=== PATIENT | male | born 2000 | race Caucasian/White ===

== ENCOUNTER 2025-04-10 13:36 | Inpatient (IN) | payer OTHER ==
[~2025-04-10] VITALS: Ht 182.9 cm; Wt 91.2 kg
[2025-04-10 14:12] LABS: PLATELET COUNT, AUTOMATED 241 10^3/uL (150-450)
[2025-04-10 14:35] LABS: AMPHETAMINES LEVEL URINE NEGATIVE (NEGATIVE); BARBITURATES URINE NEGATIVE (NEGATIVE); BENZODIAZEPINES URINE NEGATIVE (NEGATIVE); COCAINE METABOLITE URINE NEGATIVE (NEGATIVE); METHADONE URINE NEGATIVE (NEGATIVE)
[2025-04-10 14:36] LABS: CANNABINOIDS URINE NEGATIVE (NEGATIVE); OPIATES URINE NEGATIVE (NEGATIVE); PHENCYCLIDINE URINE NEGATIVE (NEGATIVE)
[2025-04-10 14:38] LABS: ETHYL ALCOHOL (ETHANOL) < 0.003 % (0.000-0.010)
[2025-04-10 14:40] LABS: ALT/SGPT 29 U/L (7.0-40); AST/SGOT 25 U/L (<34); CALCIUM LEVEL 9.3 MG/DL (8.5-10.1); CARBON DIOXIDE LEVEL 27 MMOL/L (20-31); CHLORIDE LEVEL 102 MMOL/L (98-107); CREATININE FOR GFR 1.00 MG/DL (0.70-1.30); GLOMERULAR FILTRATION RATE > 90.0 (>60); POTASSIUM SERUM 4.0 MMOL/L (3.5-5.1); SALICYLATE LEVEL < 3.0 MG/DL (<30); SODIUM LEVEL 141 MMOL/L (136-145)
[2025-04-10] MEDS ORDERED: MOM 30 ML SUSPENSION UDC PO PRN (15:35)
[2025-04-10] MEDS ORDERED: MAALOX 30 ML SUSP *UDC PO PRN (15:35)
[2025-04-10] MEDS ORDERED: ACETAMINOPHEN 325 MG TAB PO PRN (15:35)
[2025-04-10] MEDS ORDERED: HOME MED LIST COMPLETE! XX SCH (16:05)
[2025-04-10 17:01] VITALS: BP 117/58; TEMP 97.5; O2SAT 98
[2025-04-10] MEDS: IBUPROFEN 400 MG TAB PO PRN (17:19)
[2025-04-11 06:19] VITALS: BP 124/84; TEMP 97.8; O2SAT 98
[2025-04-11 15:18] VITALS: BP 110/54; TEMP 97.9; O2SAT 97
[2025-04-11] MEDS: traZODone 50 MG TAB PO PRN (22:15)
[2025-04-12 06:31] VITALS: BP 118/59; TEMP 97.8; O2SAT 99
[2025-04-12 15:24] VITALS: BP 109/53; TEMP 98; O2SAT 98
[2025-04-13 06:43] VITALS: BP 116/70; TEMP 97.5; O2SAT 97
== END 2025-04-13 11:27 | DRG 885 ==
LOC: EDBD 13:36 → M ED 13:36 → M ED INP 15:34 → M PSY 16:57
PROVIDERS: ADMIT General Practice; ATTEND General Practice
DX: F39 Unspecified mood [affective] disorder (principal); R45.850 Homicidal ideations; G89.29 Other chronic pain; M25.569 Pain in unspecified knee